=== PATIENT | female | born 1935 | race Caucasian/White ===

== ENCOUNTER 2017-04-11 07:55 | Day surgery (SDC) | payer OTHER ==
[~2017-04-11] VITALS: Ht 168.9 cm; Wt 77.0 kg
[~2017-04-11 07:55] MED LIST: ACETAMINOPHEN325 M1 PO; AMLODIPINE BESY10 MG PO; APRESOLINE25 MG PO; APRESOLINE50 MG PO; CATAPRES0.2 MG PO; CHLORTHALIDONE25 MG PO; CLINORIL150 MG PO; CLINORIL200 MG PO; CLONIDINE HCL0.2 MG PO; FOSINOPRIL SODI40 MG PO; GLIMEPIRIDE4 MG PO; LABETALOL HCL200 MG PO; LABETALOL HCL300 MG PO; LASIX40 MG PO; LEVEMIR100 UNIT/2 SC; LISINOPRIL20 MG PO; LUCENTIS0.3 MG/0.0 IO; METFORMIN HCL1000 MG PO; MICARDIS80 MG PO; NORMODYNE,TRAN200 MG PO; NORVASC10 MG PO; NOVOLOG PE100 UNITS/ SC; OMEPRAZOLE40 M1 PO; POTASSIUM CHLO10 ME3 PO; PRINIVIL20 MG PO; STOOL SOFTENER100 M1 PO
[2017-04-11 08:40] LABS: POINT-OF-CARE METER ID UU13113696
[2017-04-11 10:34] LABS: METH RESISTANT S AUREUS PCR NEGATIVE (NEGATIVE)
[2017-04-11 10:36] LABS: PROBE CHECK PASS; SPECIMEN PROCESSING CONTROL PASS
== END 2017-04-11 09:55 | disposition home or self-care (01) ==
LOC: CATH 07:55
PROVIDERS: Surgery
DX: T82.858A Stenosis of other vascular prosthetic devices, implants and grafts, initial encounter (principal); I12.0 Hypertensive chronic kidney disease with stage 5 chronic kidney disease or end stage renal disease; N18.6 End stage renal disease; Z99.2 Dependence on renal dialysis; E11.22 Type 2 diabetes mellitus with diabetic chronic kidney disease; Z79.4 Long term (current) use of insulin; Z79.899 Other long term (current) drug therapy
CPT/HCPCS: 82948; 87641; C1725; C1769; C1894; J1644; J2250; J3010